=== PATIENT | male | born 1990 | race Caucasian/White ===

== ENCOUNTER 2021-12-22 15:52 | Emergency (ER) | payer OTHER ==
[2021-12-22 15:59] VITALS: BP 139/87; PULSE 62; BMI 29.9
[2021-12-22 17:13] VITALS: TEMP 98.6
== END 2021-12-22 17:45 | disposition home or self-care (01) ==
LOC: JER 15:52
DX: L29.0 Pruritus ani (principal)
CPT/HCPCS: 99281-25

== ENCOUNTER 2022-04-27 18:55 | Emergency (ER) | payer OTHER ==
[2022-04-27 19:05] VITALS: BP 119/82; PULSE 69; RESP 19; TEMP 98.6; BMI 27.4
[2022-04-27] MEDS ORDERED: KETOROLAC TROMETHAMINE 30 MG/1 ML VIAL IM ONE (22:06)
[2022-04-27] MEDS ORDERED: ACETAMINOPHEN 325 MG TABLET (FP) PO ONE (22:06)
[2022-04-27] MEDS ORDERED: ACETAMINOPHEN 325 MG TABLET (FP) ONE (22:11)
[2022-04-27] MEDS ORDERED: KETOROLAC TROMETHAMINE 30 MG/1 ML VIAL ONE (22:12)
[2022-04-27] MEDS ORDERED: IBUPROFEN 600 MG TABLET (FP) PO ONE (22:16)
== END 2022-04-27 22:32 | disposition home or self-care (01) ==
LOC: JER 18:55 → JERFT 18:55 → JER 22:32
PROC: 3E0233Z Introduction of Anti-inflammatory into Muscle, Percutaneous Approach (ICD-10-PCS; principal; 2022-04-27)
DX: M54.50 Low back pain, unspecified (principal)
CPT/HCPCS: 99284-25

== ENCOUNTER 2023-02-28 01:44 | Emergency (ER) | payer OTHER ==
[2023-02-28 01:56] VITALS: BP 113/74; PULSE 80; RESP 18; TEMP 98.6; BMI 27.9
[2023-02-28] MEDS ORDERED: SODIUM CHLORIDE 1,000 ML IV STA (02:58)
[2023-02-28] MEDS ORDERED: ACETAMINOPHEN 1000 MG/100 ML BAG IVPB ONE (02:58)
[2023-02-28] MEDS ORDERED: METOCLOPRAMIDE HCL INJECTION 10 MG/2 ML VIAL IVPUSH ONE (02:58)
[2023-02-28] MEDS ORDERED: ACETAMINOPHEN INJECTION 100 ML IVPB ONE (03:27)
[2023-02-28] MEDS ORDERED: METOCLOPRAMIDE HCL INJECTION 10 MG/2 ML VIAL ONE (03:27)
[2023-02-28 04:15] LABS: BASO % 0.5 % (0-2.0); EOS % 0.6 % (0-4.5); HEMATOCRIT 47.1 % (35.4-49); HEMOGLOBIN 15.8 GM/dL (11.7-16.9); LYMPH % 11.7 % (8-40); MCH 30.7 pg (25.7-33.7); MCHC 33.4 g/dl (32.0-35.9); MEAN CELL VOLUME 91.7 fl (80-96); MEAN PLT VOLUME 8.7 fl (7.5-11.1); MONO % 10.3 % (3.8-10.2); NEUT % 76.9 % (42.8-82.8); PLATELET COUNT 396 10^3/uL (134-434); RBC 5.14 M/mm3 (4.00-5.60); RDW 13.1 % (11.9-15.9); WHITE BLOOD COUNT 11.5 K/mm3 (4.0-10.0)
[2023-02-28 04:32] LABS: POTASSIUM 4.3 mmol/L (3.5-5.1)
[2023-02-28 04:34] LABS: ALBUMIN 3.2 g/dl (3.4-5.0); CALCIUM 9.3 mg/dL (8.5-10.1)
[2023-02-28 04:37] LABS: CREATININE 1.2 mg/dL (0.55-1.3)
[2023-02-28 04:39] LABS: BILIRUBIN,TOTAL 0.4 mg/dL (0.2-1); TOT PROT 7.9 g/dl (6.4-8.2)
== END 2023-02-28 06:50 | disposition home or self-care (01) ==
LOC: JER 01:44
PROC: 3E033NZ Introduction of Analgesics, Hypnotics, Sedatives into Peripheral Vein, Percutaneous Approach (ICD-10-PCS; principal; 2023-02-28)
PROC: 3E033GC Introduction of Other Therapeutic Substance into Peripheral Vein, Percutaneous Approach (ICD-10-PCS; 2023-02-28)
PROC: 3E0337Z Introduction of Electrolytic and Water Balance Substance into Peripheral Vein, Percutaneous Approach (ICD-10-PCS; 2023-02-28)
DX: R51.9 Headache, unspecified (principal); R42 Dizziness and giddiness; R11.0 Nausea; R05.9 Cough, unspecified; Z20.822 Contact with and (suspected) exposure to COVID-19
CPT/HCPCS: 0241U-QW; 36415; 80053; 85025; 93005; 93010; 99284-25